=== PATIENT | male | born 2000 | race African-American/Black ===

== ENCOUNTER 2021-10-19 07:45 | Emergency (ER) | payer OTHER ==
[~2021-10-19] VITALS: Ht 188 cm; Wt 73.9 kg
[2021-10-19] MEDS ORDERED: diphenhydrAMINE HCL 50 MG/ML VIAL IV ONE (08:00)
[2021-10-19] MEDS ORDERED: PANTOPRAZOLE 40 MG VIAL IV ONE (08:00)
[2021-10-19] MEDS ORDERED: PROCHLORPERAZINE EDISYLATE 10 MG/2 ML VIAL IVP ONE (08:00)
[2021-10-19] MEDS ORDERED: IV NS 0.9% 1,000 ML BAG IV ONE (08:00)
--- NOTE | 2021-10-19 08:00 | NUR ---
RECEVED PT 21 YRS MALE Came from home c/o abdominal pain for 4 days with n/v and epegastric pain seen by DR. PEDRAZA
[2021-10-19] MEDS ORDERED: PANTOPRAZOLE 40 MG VIAL ONE (08:04)
[2021-10-19] MEDS ORDERED: diphenhydrAMINE HCL 50 MG/ML VIAL ONE (08:04)
[2021-10-19] MEDS ORDERED: PROCHLORPERAZINE EDISYLATE 10 MG/2 ML VIAL ONE (08:04)
[2021-10-19 08:13] LABS: BASOPHILS % (AUTO) 0.3 % (0.0-2.0); HEMATOCRIT 47 % (39-51); HEMOGLOBIN 15.8 g/dL (13.5-17.5); LYMPHOCYTES # (AUTO) 0.5 K/uL (0.8-4.8); LYMPHOCYTES % (AUTO) 5.1 % (20.0-44.0); MEAN CORPUSCULAR HGB CONC 34 g/dl (31.0-36.0); MEAN CORPUSCULAR VOLUME 90 fL (80-96); MONOCYTES # (AUTO) 0.8 K/uL (0.1-1.30); MONOCYTES % (AUTO) 8.2 % (2.0-12.0); NEUTROPHILS # (AUTO) 7.9 K/uL (1.8-8.9); NEUTROPHILS % (AUTO) 86.4 % (43.0-81.0); PLATELET COUNT (AUTO) 331 K/uL (150-450); RED BLOOD CELL COUNT(AUTO) 5.24 MIL/uL (4.5-6.0); WHITE BLOOD COUNT (AUTO) 9.2 K/uL (4.3-11.0)
--- NOTE | 2021-10-19 08:15 | NUR ---
INSERTED ANGO CATHTER G 20 ON RT AC BLOOD DROW AND SENT TO LAB IVF INFUSED AND PATENT
[2021-10-19 08:21] LABS: CALCIUM, SERUM 9.3 mg/dL (8.5-10.1); CREATININE 1.3 mg/dL (0.6-1.3); POTASSIUM 3.4 mmol/L (3.5-5.1)
[2021-10-19 08:27] LABS: ALBUMIN 5.1 g/dL (3.4-5.0); BILIRUBIN,DIRECT 0.4 mg/dL (0.0-0.2); TOTAL PROTEIN, SERUM 8.6 g/dL (6.4-8.2)
--- NOTE | 2021-10-19 08:49 | NUR ---
PAIN REDUCED AND NAUSEA RESOLVE
--- NOTE | 2021-10-19 09:31 | NUR ---
UA SENT TO LAB
--- NOTE | 2021-10-19 09:49 | NUR ---
c/o pain back 08/04 notefy
[2021-10-19] MEDS ORDERED: MORPHINE SULFATE INJ 2 MG/ML DISP.SYRIN ONE (09:57)
[2021-10-19] MEDS ORDERED: ONDANSETRON HCL/PF 4 MG/2 ML VIAL ONE (09:57)
[2021-10-19] MEDS ORDERED: ONDANSETRON HCL/PF - ER 4 MG/2 ML VIAL IV ONE (10:00)
[2021-10-19] MEDS ORDERED: MORPHINE SULFATE INJ 2 MG/ML DISP.SYRIN IV ONE (10:00)
--- NOTE | 2021-10-19 10:00 | NUR ---
VOMITING X1 250 ML WATERY BRONSH COLOR DR.LUTSKY BENITEZ MEDITION WAS GIVEN
[2021-10-19 10:18] LABS: BILIRUBIN,URINE NEGATIVE (NEGATIVE); COLOR,URINE YELLOW (YELLOW); LEUKOCYTE ESTERASE ,URINE NEGATIVE (NEGATIVE); NITRITE, URINE NEGATIVE (NEGATIVE); PROTEIN,URINE 30 mg/dl (NEGATIVE); UGLUCOSE NEGATIVE (NEGATIVE); UROBILINOGEN,URINE 0.2 EU/dL (0.2)
[2021-10-19 10:25] LABS: PH,URINE >8.5 (5.0-8.0)
--- NOTE | 2021-10-19 10:44 | NUR ---
Pt responded to tx ABDOMINALE PAIN 0/10 AND NO N/V
[2021-10-19 10:52] LABS: BACTERIA,URINE Rare /HPF (None Seen); RBC,URINE 0-2 /HPF (0-2); SQUAMOUS EPITHELIAL CELL,UR 0-2 /HPF (None Seen); WBC,URINE 0-2 /HPF (0-3)
[2021-10-19] MEDS ORDERED: FAMO-131 PO (11:28)
[2021-10-19] MEDS ORDERED: ONDA4TAB5 PO (11:28)
--- NOTE | 2021-10-19 11:47 | NUR ---
Patient discharged to home in stable condition. Written and verbal after care instructions given. Patient verbalizes understanding of instruction.IV removed. Catheter intact and site benign. Pressure and 4x4 applied to site. No bleeding noted.
[2021-10-19 11:48] VITALS: BP 128/66
== END 2021-10-19 11:49 | disposition home or self-care (01) ==
LOC: ER 07:50
DX: R11.2 Nausea with vomiting, unspecified (principal); E80.6 Other disorders of bilirubin metabolism; R10.13 Epigastric pain; Z88.0 Allergy status to penicillin
CPT/HCPCS: 99285; 96374; 96375; 96361; 85025; 80048; 83690; 80076; 81001; 36415; J0780; J1200; J2405 ×2; J7030; C9113; J2270